=== PATIENT | female | born 1980 | race Two or more races ===

== ENCOUNTER 2024-12-25 10:40 | Emergency (ER) | payer OTHER ==
[~2024-12-25] VITALS: Ht 157.5 cm; Wt 58.1 kg
[~2024-12-25 10:40] MED LIST: INTESTINEX680 MG PO
[2024-12-25] MEDS ORDERED: KETOROLAC TROMETHAMINE 60 MG VIAL IM STA (11:49)
[2024-12-25] MEDS ORDERED: KETOROLAC TROMETHAMINE 60 MG VIAL IM ONE (12:22)
[2024-12-25] MEDS ORDERED: KETO10TA2 PO (12:23)
== END 2024-12-25 13:03 | disposition home or self-care (01) ==
LOC: ER 10:53
DX: G89.11 Acute pain due to trauma (principal); M25.521 Pain in right elbow